=== PATIENT | male | born 1990 | race Caucasian/White ===

== ENCOUNTER 2023-11-03 14:27 | Outpatient (AMB) | payer OTHER, SELFPAY ==
--- NOTE | 2023-11-03 14:30 | MHC.OFFWIV ---
Intake Vital Signs 11/03/23 14:32 Height 5 ft 11 in Weight 205 lb BMI 28.6 BP 122/74 Blood Pressure Location Lt brachial Position Sitting Pulse 97 Pulse Source Pulse Oximeter Pulse Oximetry (%) 97 Oxygen Delivery Method Room Air Intake Visit Reasons: [employer] dog bite on lip Intake Note: pt is here for dog bite on lip, patient states dog is up to date on vaccines, patient is also up to date on tdap Patient Tobacco Use Status: Never used Tobacco Allergies No Known Allergies Allergy (Verified 11/03/23 15:02) Medication List - Last Reconciled 11/03/23 by Nathen Foreman MD sulfamethoxazole-trimethoprim 800-160 mg (Bactrim DS) 1 tab PO BID 10 days Do you need a note to return to daycare/school/sports/work: No HPI [employer] dog bite on lip HPI Details 33 yr old male presents to the office for a sick visit. Pt was bit by his own dog in the upper lip. The dog is uptodate on all immunizations. Incident happened today, a few hours ago. PFSH Social History Patient Tobacco Use Status: Never used Tobacco Physical Exam Vital Signs: Last Vital Signs Pulse 97 11/03/23 14:32 BP 122/74 11/03/23 14:32 Pulse Ox 97 11/03/23 14:32 Oxygen Delivery Method Room Air 11/03/23 14:32 BMI result Body Mass Index 28.6 HEENT Other: Oral mucosa: Intact. The wound on the upper lip did not almaraz the mucosal surface Skin Other: Upper lip: three small wounds. Middle one is deeper 2 cm in size. Patient has hair on the upper lip. Assessment & Plan Assessment & Plan (1) Dog bite: Code(s): W54.0XXA - Bitten by dog, initial encounter Plan: Patient upto date on immunization. Bactrim given for antibiotic coverage. His wound on the upper lip warrants a suture. However, the thin suture material for the upper lip not available. Advised him to go to the ER if he wants it sutured. Patient has declined. He understands there will be a small scar. Medications: New sulfamethoxazole-trimethoprim 800-160 mg (Bactrim DS) 1 tab PO BID 20 tabs 0RF 10 days Coding Level of Care Code New Pt Level 3 (24069) Diagnoses Dog bite W54.0XXA
[2023-11-03 14:32] VITALS: BP 122/74; PULSE 97; O2SAT 97; BMI 28.6
== END 2023-11-03 15:01 | disposition home or self-care (01) ==
PROVIDERS: PCP Physician Assistant Medical; Visit Provider Internal Medicine
DX: S01.501A Unspecified open wound of lip, initial encounter (principal); W54.0XXA Bitten by dog, initial encounter
CPT/HCPCS: 99203